=== PATIENT | male | born 1935 | race Caucasian/White ===

== ENCOUNTER → 2020-06-28 | Outpatient (CLI) | payer MEDICARE, OTHER ==
[~2020-06-28] MED LIST: AMLO2.5T5 PO; APIX5TAB PO; CARV12.52 PO; DOXY100T PO; LOSA50TA14 PO; LOVA40TA2 PO
[2020-06-28 13:56] LABS: ALANINE AMINOTRANSFERASE 58 U/L (12-78); ALBUMIN 2.8 g/dL (3.4-5.0); ANION GAP 6 mmol/L (5-15); CALCIUM 8.9 mg/dL (8.5-10.1); CHLORIDE 106 mmol/L (98-107); CREATININE 0.97 mg/dL (0.7-1.3)
[2020-06-28 13:58] LABS: ALKALINE PHOSPHATASE 354 U/L (45-117); BILIRUBIN,TOTAL 1.3 mg/dL (0.2-1.0); TOTAL PROTEIN 6.4 g/dL (6.4-8.2)
[2020-06-28 14:02] LABS: BASOPHILS % (AUTO) 1 % (0-1); EOSINOPHILS % (AUTO) 1 % (1-7); LYMPHOCYTES % (AUTO) 9 % (22-44); MEAN CORPUSCULAR HEMOGLOBIN 33.3 pg (27.5-34.5); MEAN CORPUSCULAR HGB CONC 32.7 g/dL (33.2-36.2); MEAN PLATELET VOLUME 8.4 fL (7.4-10.4); MONOCYTES % (AUTO) 8 % (2-9); NEUTROPHILS % (AUTO) 81 % (42-75); PLATELET COUNT 265 x10^3/uL (130-400); RED BLOOD COUNT 4.88 x10^6/uL (4.38-5.82); RED CELL DISTRIBUTION WIDTH 13.8 % (9.4-14.8)
[2020-06-28 14:10] LABS: INTERNATIONAL NORMALIZED RATIO 1.17 (0.93-1.1); PROTHROMBIN TIME 12.4 Seconds (9.6-11.5)
[2020-06-28 14:42] LABS: MD SCAN
== END | disposition home or self-care (01) ==
LOC: STAR 12:23
PROVIDERS: ATTEND Orthopaedic Surgery
DX: Z01.812 Encounter for preprocedural laboratory examination (principal); Z20.828 Contact with and (suspected) exposure to other viral communicable diseases; I48.91 Unspecified atrial fibrillation; I25.2 Old myocardial infarction; Z96.651 Presence of right artificial knee joint
CPT/HCPCS: 36415; 80053; 83036; 85025; 85610; 85730; 87081; 87635; 87806; 93005; G0475

== ENCOUNTER 2020-07-02 12:56 | Inpatient (IN) | payer MEDICARE, OTHER ==
[~2020-07-02] VITALS: Ht 188 cm; Wt 115.0 kg
[2020-07-02] MEDS ORDERED: GABAPENTIN 300 MG CAPSULE PO ONE (13:30)
[2020-07-02] MEDS ORDERED: VANCOMYCIN PER PHARMACY MC PRN (13:30)
[2020-07-02] MEDS ORDERED: VANCOMYCIN 2,500 MG in SODIUM CHLORIDE 0.9% 500 ML IV ONE (13:30)
[2020-07-02] MEDS ORDERED: ACETAMINOPHEN 500 MG TABLET PO ONE (13:30)
[2020-07-02 13:56] VITALS: BP 156/91
[2020-07-02] MEDS ORDERED: CHLORHEXIDINE 15 ML UDC MM ONE (14:00)
[2020-07-02] MEDS ORDERED: LACTATED RINGERS 1,000 ML IV SCH (14:00)
[2020-07-02] MEDS ORDERED: CHLORHEXIDINE 15 ML UDC ONE (14:01)
[2020-07-02] MEDS ORDERED: MIDAZOLAM 1 MG/ML, 2ML ONE (15:58)
[2020-07-02] MEDS ORDERED: FENTANYL PF 250 MCG/5ML ONE (15:58)
[2020-07-02] MEDS ORDERED: ROCURONIUM 10 MG/ML,10ML ONE (16:03)
[2020-07-02] MEDS ORDERED: NEOSTIGMINE 1 MG/ML, 10ML ONE (16:03)
[2020-07-02] MEDS ORDERED: PROPOFOL 10 MG/ML, 20ML ONE (16:03)
[2020-07-02] MEDS ORDERED: GLYCOPYRROLATE 0.2MG/1ML, 5ML ONE (16:03)
[2020-07-02] MEDS ORDERED: CEFAZOLIN 1,000 MG ONE (16:03)
[2020-07-02] MEDS ORDERED: DEXAMETHASONE 4 MG/ML, 1ML ONE (16:03)
[2020-07-02] MEDS ORDERED: VANCOMYCIN 1,000 MG ONE (17:39)
[2020-07-02] MEDS ORDERED: OXYcodone 5 MG/5 ML ORAL.SOL UDC PO PRN (18:00)
[2020-07-02] MEDS ORDERED: LABETALOL 5MG/ML, 20ML IV PRN (18:00)
[2020-07-02] MEDS ORDERED: ONDANSETRON 2MG/ML, 2ML IVPush PRN ×2 (18:00→18:30)
[2020-07-02] MEDS ORDERED: hydrALAzine 20 MG/ML, 1ML IV PRN (18:00)
[2020-07-02] MEDS ORDERED: FENTANYL PF 100 MCG/2ML IV PRN (18:00)
[2020-07-02] MEDS ORDERED: DIPHENHYDRAMINE 50 MG/ML, 1ML IVPush PRN (18:30)
[2020-07-02] MEDS ORDERED: ALUMINUM/MAG/SIMETHICONE 30 ML UDC PO PRN (18:30)
[2020-07-02] MEDS ORDERED: PSYLLIUM PACKET PO PRN (18:30)
[2020-07-02] MEDS ORDERED: DIPHENHYDRAMINE 25 MG CAPSULE PO PRN (18:30)
[2020-07-02] MEDS ORDERED: MAGNESIUM HYDROXIDE 8%, 30ML UDC PO PRN (18:30)
[2020-07-02] MEDS ORDERED: METOCLOPRAMIDE 10MG TABLET PO PRN (18:30)
[2020-07-02] MEDS ORDERED: ONDANSETRON 4 MG TABLET PO PRN (18:30)
[2020-07-02] MEDS ORDERED: POLYETHYLENE GLYCOL 17 GM PACKET PO PRN (18:30)
[2020-07-02] MEDS ORDERED: HYDROmorphone 1 MG/ML, 1ML INJ IVPush PRN (18:30)
[2020-07-02] MEDS ORDERED: ACETAMINOPHEN 650 MG/20.3 ML UDC PO PRN (18:30)
[2020-07-02] MEDS ORDERED: ACETAMINOPHEN 325 MG TABLET PO PRN (18:30)
[2020-07-02] MEDS ORDERED: SENNA/DOCUSATE TABLET PO PRN (18:30)
[2020-07-02] MEDS ORDERED: DIAZEPAM 5 MG TABLET PO PRN (18:30)
[2020-07-02] MEDS ORDERED: TRANEXAMIC ACID 1,000 MG in SODIUM CHLORIDE 0.9% 100 ML IVPB ONE (18:30)
[2020-07-02] MEDS ORDERED: PROMETHAZINE 25 MG/ML, 1ML IM PRN (18:30)
[2020-07-02] MEDS ORDERED: FENTANYL PF 100 MCG/2ML ONE (18:36)
[2020-07-02] MEDS ORDERED: OXYcodone 5 MG/5 ML ORAL.SOL UDC ONE ×2 (18:36→18:54)
[2020-07-02] MEDS ORDERED: HYDROmorphone 2 MG/ML, 1ML ONE (18:54)
[2020-07-02] MEDS: HYDROmorphone 1 MG/ML, 1ML INJ IVPush PRN ×2 (18:56→19:10)
[2020-07-02] MEDS ORDERED: APIXABAN 5 MG TABLET PO SCH (21:00)
[2020-07-02] MEDS: PREGABALIN 75 MG CAPSULE PO SCH (21:15)
[2020-07-02] MEDS: LOVASTATIN 40 MG TABLET PO SCH (21:15)
[2020-07-02] MEDS: KETOROLAC 30 MG/1 ML IV SCH (21:15)
[2020-07-02] MEDS: AMLODIPINE 2.5 MG TABLET PO SCH (21:16)
[2020-07-02] MEDS: LOSARTAN 50MG TABLET PO SCH (21:16)
[2020-07-02] MEDS: DOCUSATE 100 MG CAPSULE PO SCH (21:23)
[2020-07-03 00:10] VITALS: BP 106/68
[2020-07-03] MEDS: OXYcodone IR 5MG TABLET PO PRN ×3 (00:20→15:59)
[2020-07-03] MEDS: CEFAZOLIN PMX 1GM/50ML 50 ML IVPB SCH ×2 (00:21→09:23)
[2020-07-03] MEDS ORDERED: VANCOMYCIN PMX 1GM/200ML 200 ML IVPB SCH (02:00)
[2020-07-03 03:27] VITALS: BP 116/67
[2020-07-03] MEDS: POTASSIUM CHLORIDE 20 MEQ in D5%-0.45% NACL 1,000 ML IV SCH ×3 (04:15→14:34)
[2020-07-03] MEDS ORDERED: DEXAMETHASONE 4 MG/ML, 1ML IVPush SCH (06:00)
[2020-07-03] MEDS ORDERED: APIXABAN 5 MG TABLET PO SCH (06:00)
[2020-07-03] MEDS: CARVEDILOL 12.5 MG TABLET PO SCH ×2 (06:04→18:07)
[2020-07-03] MEDS: KETOROLAC 30 MG/1 ML IV SCH ×2 (06:04→13:04)
[2020-07-03 08:39] VITALS: BP 101/64
[2020-07-03] MEDS: AMLODIPINE 2.5 MG TABLET PO SCH ×2 (09:24→20:15)
[2020-07-03] MEDS: PREGABALIN 75 MG CAPSULE PO SCH ×2 (09:25→20:15)
[2020-07-03] MEDS: LOSARTAN 50MG TABLET PO SCH ×2 (09:25→20:15)
[2020-07-03] MEDS: DOCUSATE 100 MG CAPSULE PO SCH ×2 (09:25→21:00)
[2020-07-03] MEDS: TAMSULOSIN 0.4 MG CAP.ER.24H PO SCH (09:25)
[2020-07-03 13:10] VITALS: BP 114/76
[2020-07-03 19:01] VITALS: BP 98/63
[2020-07-03] MEDS: LOVASTATIN 40 MG TABLET PO SCH (20:15)
[2020-07-04] MEDS: POTASSIUM CHLORIDE 20 MEQ in D5%-0.45% NACL 1,000 ML IV SCH ×3 (00:48→20:59)
[2020-07-04 00:56] VITALS: BP 113/71
[2020-07-04] MEDS: ENOXAPARIN 40 MG/0.4 ML SQ SCH (06:30)
[2020-07-04 06:44] VITALS: BP 99/61
[2020-07-04] MEDS: CARVEDILOL 12.5 MG TABLET PO SCH ×2 (06:54→17:54)
[2020-07-04] MEDS: OXYcodone IR 5MG TABLET PO PRN ×3 (06:54→22:00)
[2020-07-04] MEDS: PREGABALIN 75 MG CAPSULE PO SCH ×2 (08:47→20:52)
[2020-07-04] MEDS: TAMSULOSIN 0.4 MG CAP.ER.24H PO SCH (08:47)
[2020-07-04] MEDS: DOCUSATE 100 MG CAPSULE PO SCH ×2 (08:56→20:59)
[2020-07-04] MEDS: AMLODIPINE 2.5 MG TABLET PO SCH ×2 (08:56→20:52)
[2020-07-04] MEDS: LOSARTAN 50MG TABLET PO SCH ×2 (08:56→20:52)
[2020-07-04 14:03] VITALS: BP 98/63
[2020-07-04 19:17] VITALS: BP 107/70
[2020-07-04] MEDS: LOVASTATIN 40 MG TABLET PO SCH (20:52)
[2020-07-05 01:45] VITALS: BP 95/63
[2020-07-05] MEDS: CARVEDILOL 12.5 MG TABLET PO SCH ×2 (06:00→17:56)
[2020-07-05 06:04] LABS: BASOPHILS % (AUTO) 0 % (0-1); EOSINOPHILS % (AUTO) 1 % (1-7); LYMPHOCYTES % (AUTO) 7 % (22-44); MEAN CORPUSCULAR HEMOGLOBIN 33.4 pg (27.5-34.5); MEAN CORPUSCULAR HGB CONC 32.8 g/dL (33.2-36.2); MEAN PLATELET VOLUME 8.5 fL (7.4-10.4); MONOCYTES % (AUTO) 11 % (2-9); NEUTROPHILS % (AUTO) 81 % (42-75); PLATELET COUNT 148 x10^3/uL (130-400); RED CELL DISTRIBUTION WIDTH 13.5 % (9.4-14.8)
[2020-07-05 06:12] LABS: ALANINE AMINOTRANSFERASE 24 U/L (12-78); ALBUMIN 2.3 g/dL (3.4-5.0); ANION GAP 4 mmol/L (5-15); CALCIUM 8.4 mg/dL (8.5-10.1); CHLORIDE 107 mmol/L (98-107); CREATININE 0.93 mg/dL (0.7-1.3)
[2020-07-05] MEDS: ENOXAPARIN 40 MG/0.4 ML SQ SCH (06:12)
[2020-07-05 06:14] LABS: ALKALINE PHOSPHATASE 215 U/L (45-117); BILIRUBIN,TOTAL 0.4 mg/dL (0.2-1.0); TOTAL PROTEIN 5.1 g/dL (6.4-8.2)
[2020-07-05 06:22] LABS: MD NO
[2020-07-05] MEDS: POTASSIUM CHLORIDE 20 MEQ in D5%-0.45% NACL 1,000 ML IV SCH ×2 (06:37→11:58)
[2020-07-05 08:25] VITALS: BP 104/69
[2020-07-05] MEDS: DOCUSATE 100 MG CAPSULE PO SCH ×2 (09:00→21:00)
[2020-07-05] MEDS: OXYcodone IR 5MG TABLET PO PRN ×3 (09:42→21:39)
[2020-07-05] MEDS: PREGABALIN 75 MG CAPSULE PO SCH ×2 (09:43→21:39)
[2020-07-05] MEDS: AMLODIPINE 2.5 MG TABLET PO SCH ×2 (09:43→21:39)
[2020-07-05] MEDS: LOSARTAN 50MG TABLET PO SCH ×2 (09:43→21:39)
[2020-07-05] MEDS: TAMSULOSIN 0.4 MG CAP.ER.24H PO SCH (09:43)
[2020-07-05 12:39] VITALS: BP 108/67
[2020-07-05 19:53] VITALS: BP 109/72
[2020-07-05] MEDS: LOVASTATIN 40 MG TABLET PO SCH (21:39)
[2020-07-06 01:08] VITALS: BP 140/83
[2020-07-06] MEDS: POTASSIUM CHLORIDE 20 MEQ in D5%-0.45% NACL 1,000 ML IV SCH (03:18)
[2020-07-06] MEDS: CARVEDILOL 12.5 MG TABLET PO SCH ×2 (04:51→18:04)
[2020-07-06] MEDS ORDERED: EPINEPHRINE 1 MG/ML, 1ML ONE (06:06)
[2020-07-06] MEDS ORDERED: ROPIvacaine/PF 0.2%, 20 ML ONE ×2 (06:06→07:36)
[2020-07-06] MEDS ORDERED: SODIUM CHLORIDE 0.9% 50 ML ONE (06:06)
[2020-07-06] MEDS ORDERED: VANCOMYCIN 1,000 MG ONE ×2 (06:06→07:36)
[2020-07-06] MEDS ORDERED: KETOROLAC 60 MG/2 ML ONE (06:06)
[2020-07-06] MEDS ORDERED: TRANEXAMIC ACID 100 MG/ML, 10ML ONE ×2 (06:06→07:36)
[2020-07-06] MEDS ORDERED: CHLORHEXIDINE 15 ML UDC MM ONE (06:30)
[2020-07-06] MEDS ORDERED: CHLORHEXIDINE 15 ML UDC ONE (06:31)
[2020-07-06] MEDS ORDERED: FENTANYL PF 100 MCG/2ML ONE ×2 (06:40→09:16)
[2020-07-06] MEDS ORDERED: EPHEDRINE 50 MG/ML, 1ML ONE (06:58)
[2020-07-06] MEDS ORDERED: VASOPRESSIN 20 UNIT/ML, 1ML ONE (06:58)
[2020-07-06] MEDS ORDERED: CEFAZOLIN 1,000 MG ONE (07:22)
[2020-07-06] MEDS ORDERED: DEXAMETHASONE 4 MG/ML, 1ML ONE (07:22)
[2020-07-06] MEDS ORDERED: ONDANSETRON 2MG/ML, 2ML ONE (07:22)
[2020-07-06] MEDS ORDERED: ROCURONIUM 10MG/ML,5ML ONE (07:22)
[2020-07-06] MEDS ORDERED: GLYCOPYRROLATE 0.2MG/1ML, 5ML ONE (07:22)
[2020-07-06] MEDS ORDERED: PROPOFOL 10 MG/ML, 20ML ONE (07:22)
[2020-07-06] MEDS ORDERED: SUCCINYLCHOLINE 20 MG/ML, 10ML ONE (07:22)
[2020-07-06] MEDS ORDERED: NEOSTIGMINE 1 MG/ML, 10ML ONE (07:22)
[2020-07-06] MEDS ORDERED: PROMETHAZINE 25 MG/ML, 1ML IVPush PRN (08:00)
[2020-07-06] MEDS ORDERED: MEPERIDINE/PF 25MG/0.5ML IVPush PRN (08:00)
[2020-07-06] MEDS ORDERED: HYDROcodone/APAP 7.5-325MG/15ML UDC PO PRN (08:00)
[2020-07-06] MEDS ORDERED: HYDROmorphone 1 MG/ML, 1ML INJ IVPush PRN (08:00)
[2020-07-06] MEDS ORDERED: OXYcodone 5 MG/5 ML ORAL.SOL UDC PO PRN (08:00)
[2020-07-06] MEDS: AMLODIPINE 2.5 MG TABLET PO SCH ×2 (09:00→22:06)
[2020-07-06] MEDS ORDERED: TRANEXAMIC ACID 1,000 MG in SODIUM CHLORIDE 0.9% 100 ML IVPB ONE (09:00)
[2020-07-06] MEDS: TAMSULOSIN 0.4 MG CAP.ER.24H PO SCH (09:00)
[2020-07-06] MEDS: DOCUSATE 100 MG CAPSULE PO SCH ×3 (09:00→22:10)
[2020-07-06] MEDS: LOSARTAN 50MG TABLET PO SCH ×2 (09:00→22:06)
[2020-07-06] MEDS: PREGABALIN 75 MG CAPSULE PO SCH ×2 (09:00→22:06)
[2020-07-06] MEDS: FENTANYL PF 100 MCG/2ML IV PRN ×3 (09:15→09:45)
[2020-07-06] MEDS ORDERED: OXYcodone 5 MG/5 ML ORAL.SOL UDC ONE (09:16)
[2020-07-06 11:05] LABS: BASOPHILS % (AUTO) 0 % (0-1); EOSINOPHILS % (AUTO) 1 % (1-7); LYMPHOCYTES % (AUTO) 6 % (22-44); MEAN CORPUSCULAR HEMOGLOBIN 33.2 pg (27.5-34.5); MEAN CORPUSCULAR HGB CONC 32.9 g/dL (33.2-36.2); MONOCYTES % (AUTO) 6 % (2-9); NEUTROPHILS % (AUTO) 86 % (42-75); PLATELET COUNT 116 x10^3/uL (130-400); RED BLOOD COUNT 3.43 x10^6/uL (4.38-5.82); RED CELL DISTRIBUTION WIDTH 13.6 % (9.4-14.8)
[2020-07-06] MEDS ORDERED: ACETAMINOPHEN 650 MG/20.3 ML UDC PO PRN (11:30)
[2020-07-06 11:33] LABS: MD SCAN
[2020-07-06 12:04] VITALS: BP 105/57
[2020-07-06] MEDS ORDERED: VANCOMYCIN PER PHARMACY MC PRN (13:00)
[2020-07-06] MEDS ORDERED: PHARMACOKINETIC MONITORING MC PRN (13:30)
[2020-07-06] MEDS ORDERED: PHARMACOKINETIC CONSULTATION MC ONE (13:30)
[2020-07-06] MEDS: LACTATED RINGERS 1,000 ML IV SCH (14:27)
[2020-07-06] MEDS: CEFAZOLIN PMX 1GM/50ML 50 ML IV SCH (15:47)
[2020-07-06] MEDS ORDERED: VANCOMYCIN 1,400 MG in SODIUM CHLORIDE 0.9% 250 ML IV ONE (16:30)
[2020-07-06] MEDS: LACTOBACILLUS CHEW TABLET PO SCH ×2 (18:04→22:06)
[2020-07-06] MEDS: OXYcodone IR 5MG TABLET PO PRN ×2 (18:23→22:18)
[2020-07-06 20:11] VITALS: BP 98/62
[2020-07-06] MEDS: LOVASTATIN 40 MG TABLET PO SCH (22:06)
[2020-07-06] MEDS: CALCIUM/VITAMIN D3 250-125 TABLET PO SCH (22:06)
[2020-07-06 23:49] VITALS: BP 107/63
[2020-07-07] MEDS: CEFAZOLIN PMX 1GM/50ML 50 ML IV SCH ×3 (00:11→16:38)
[2020-07-07 03:20] VITALS: BP 107/67
[2020-07-07] MEDS: OXYcodone IR 5MG TABLET PO PRN ×2 (04:36→21:16)
[2020-07-07 05:48] LABS: BASOPHILS % (AUTO) 0 % (0-1); EOSINOPHILS % (AUTO) 0 % (1-7); LYMPHOCYTES % (AUTO) 5 % (22-44); MEAN CORPUSCULAR HEMOGLOBIN 33.9 pg (27.5-34.5); MEAN CORPUSCULAR HGB CONC 33.6 g/dL (33.2-36.2); MEAN PLATELET VOLUME 9.6 fL (7.4-10.4); MONOCYTES % (AUTO) 10 % (2-9); NEUTROPHILS % (AUTO) 85 % (42-75); PLATELET COUNT 127 x10^3/uL (130-400); RED BLOOD COUNT 3.13 x10^6/uL (4.38-5.82); RED CELL DISTRIBUTION WIDTH 13.8 % (9.4-14.8)
[2020-07-07 06:04] LABS: % IRON SATURATION 20 % (20-55); ANION GAP 2 mmol/L (5-15); CALCIUM 8.2 mg/dL (8.5-10.1); CHLORIDE 107 mmol/L (98-107); CREATININE 0.91 mg/dL (0.7-1.3); IRON LEVEL 34 mcg/dL (65-175); TOTAL IRON BINDING CAPACITY 174 mcg/dL (250-450)
[2020-07-07 06:06] LABS: VANCOMYCIN,RANDOM 15.6 mcg/mL
[2020-07-07 06:32] LABS: MD NO
[2020-07-07] MEDS: ALENDRONATE 10 MG TABLET PO SCH (06:51)
[2020-07-07] MEDS: CARVEDILOL 12.5 MG TABLET PO SCH ×2 (06:51→10:18)
[2020-07-07] MEDS: LACTOBACILLUS CHEW TABLET PO SCH ×3 (08:46→21:14)
[2020-07-07] MEDS: TAMSULOSIN 0.4 MG CAP.ER.24H PO SCH (08:46)
[2020-07-07] MEDS: PREGABALIN 75 MG CAPSULE PO SCH ×2 (08:46→21:15)
[2020-07-07] MEDS: DOCUSATE 100 MG CAPSULE PO SCH ×2 (08:47→21:14)
[2020-07-07] MEDS: AMLODIPINE 2.5 MG TABLET PO SCH ×2 (08:47→21:15)
[2020-07-07] MEDS: ENOXAPARIN 40 MG/0.4 ML SQ SCH (08:47)
[2020-07-07] MEDS: CALCIUM/VITAMIN D3 250-125 TABLET PO SCH ×2 (08:47→21:14)
[2020-07-07] MEDS: LACTATED RINGERS 1,000 ML IV SCH (08:54)
[2020-07-07 09:51] VITALS: BP 75/53
[2020-07-07] MEDS ORDERED: SODIUM CHLORIDE 0.9%, 500ML IVBOLUS ONE (10:30)
[2020-07-07] MEDS: VANCOMYCIN 1,800 MG in SODIUM CHLORIDE 0.9% 250 ML IV SCH (11:36)
[2020-07-07 12:39] VITALS: BP 90/49
[2020-07-07 17:39] LABS: ANION GAP 4 mmol/L (5-15); CALCIUM 8.1 mg/dL (8.5-10.1); CHLORIDE 106 mmol/L (98-107); CREATININE 0.99 mg/dL (0.7-1.3)
[2020-07-07] MEDS ORDERED: CARVEDILOL 6.25 MG TABLET PO SCH (18:00)
[2020-07-07] MEDS: LOVASTATIN 40 MG TABLET PO SCH (21:14)
[2020-07-07 21:15] VITALS: BP 109/71
[2020-07-08] MEDS: LACTATED RINGERS 1,000 ML IV SCH ×2 (01:02→17:57)
[2020-07-08] MEDS: CEFAZOLIN PMX 1GM/50ML 50 ML IV SCH ×3 (01:02→17:56)
[2020-07-08 01:27] VITALS: BP 97/70
[2020-07-08 05:21] LABS: BASOPHILS % (AUTO) 0 % (0-1); EOSINOPHILS % (AUTO) 2 % (1-7); LYMPHOCYTES % (AUTO) 8 % (22-44); MEAN CORPUSCULAR HEMOGLOBIN 33.6 pg (27.5-34.5); MEAN CORPUSCULAR HGB CONC 33.2 g/dL (33.2-36.2); MEAN PLATELET VOLUME 9.4 fL (7.4-10.4); MONOCYTES % (AUTO) 13 % (2-9); NEUTROPHILS % (AUTO) 77 % (42-75); PLATELET COUNT 129 x10^3/uL (130-400); RED BLOOD COUNT 3.02 x10^6/uL (4.38-5.82); RED CELL DISTRIBUTION WIDTH 13.7 % (9.4-14.8)
[2020-07-08 05:23] LABS: ANION GAP 4 mmol/L (5-15); CALCIUM 8.3 mg/dL (8.5-10.1); CHLORIDE 110 mmol/L (98-107); CREATININE 0.86 mg/dL (0.7-1.3)
[2020-07-08 05:30] LABS: MD NO
[2020-07-08 06:50] VITALS: BP 115/72
[2020-07-08] MEDS: ALENDRONATE 10 MG TABLET PO SCH (06:54)
[2020-07-08] MEDS: CARVEDILOL 6.25 MG TABLET PO SCH ×2 (06:55→18:00)
[2020-07-08] MEDS: OXYcodone IR 5MG TABLET PO PRN ×4 (06:56→20:12)
[2020-07-08 08:24] VITALS: BP 104/56
[2020-07-08] MEDS: LACTOBACILLUS CHEW TABLET PO SCH ×3 (08:54→20:12)
[2020-07-08] MEDS: AMLODIPINE 2.5 MG TABLET PO SCH ×2 (08:54→20:13)
[2020-07-08] MEDS: CALCIUM/VITAMIN D3 250-125 TABLET PO SCH ×2 (08:54→20:13)
[2020-07-08] MEDS: TAMSULOSIN 0.4 MG CAP.ER.24H PO SCH (08:54)
[2020-07-08] MEDS: PREGABALIN 75 MG CAPSULE PO SCH ×2 (08:55→20:13)
[2020-07-08] MEDS: ENOXAPARIN 40 MG/0.4 ML SQ SCH (08:56)
[2020-07-08] MEDS: DOCUSATE 100 MG CAPSULE PO SCH ×2 (09:00→20:13)
[2020-07-08] MEDS: VANCOMYCIN 1,800 MG in SODIUM CHLORIDE 0.9% 250 ML IV SCH (11:33)
[2020-07-08 14:31] VITALS: BP 96/59
[2020-07-08 18:00] VITALS: BP 99/59
[2020-07-08] MEDS: LOVASTATIN 40 MG TABLET PO SCH (20:12)
[2020-07-08 20:26] VITALS: BP 105/64
[2020-07-09] MEDS: CEFAZOLIN PMX 1GM/50ML 50 ML IV SCH ×3 (01:11→17:27)
[2020-07-09] MEDS: OXYcodone IR 5MG TABLET PO PRN ×5 (01:11→21:13)
[2020-07-09 01:24] VITALS: BP 115/71
[2020-07-09 06:46] VITALS: BP 125/79
[2020-07-09] MEDS: ALENDRONATE 10 MG TABLET PO SCH (06:47)
[2020-07-09] MEDS: CARVEDILOL 6.25 MG TABLET PO SCH ×2 (06:47→17:26)
[2020-07-09 07:38] VITALS: BP 119/77
[2020-07-09] MEDS: PREGABALIN 75 MG CAPSULE PO SCH ×2 (08:53→21:09)
[2020-07-09] MEDS: LACTOBACILLUS CHEW TABLET PO SCH ×3 (08:53→21:09)
[2020-07-09] MEDS: ENOXAPARIN 40 MG/0.4 ML SQ SCH (08:54)
[2020-07-09] MEDS: CALCIUM/VITAMIN D3 250-125 TABLET PO SCH ×2 (08:54→21:09)
[2020-07-09] MEDS: TAMSULOSIN 0.4 MG CAP.ER.24H PO SCH (08:54)
[2020-07-09] MEDS: LACTATED RINGERS 1,000 ML IV SCH (10:30)
[2020-07-09] MEDS: VANCOMYCIN 1,800 MG in SODIUM CHLORIDE 0.9% 250 ML IV SCH (12:31)
[2020-07-09 14:17] VITALS: BP 122/69
[2020-07-09 20:29] VITALS: BP 99/62
[2020-07-09] MEDS ORDERED: AMLODIPINE 2.5 MG TABLET PO SCH (21:00)
[2020-07-09] MEDS: LOVASTATIN 40 MG TABLET PO SCH (21:09)
[2020-07-10] MEDS: CEFAZOLIN PMX 1GM/50ML 50 ML IV SCH ×2 (00:42→09:28)
[2020-07-10 01:02] VITALS: BP 106/66
[2020-07-10] MEDS: OXYcodone IR 5MG TABLET PO PRN ×3 (01:28→11:23)
[2020-07-10] MEDS: LACTATED RINGERS 1,000 ML IV SCH (03:10)
[2020-07-10 06:06] LABS: BASOPHILS % (AUTO) 1 % (0-1); EOSINOPHILS % (AUTO) 6 % (1-7); LYMPHOCYTES % (AUTO) 11 % (22-44); MEAN CORPUSCULAR HEMOGLOBIN 33.1 pg (27.5-34.5); MEAN CORPUSCULAR HGB CONC 32.7 g/dL (33.2-36.2); MEAN PLATELET VOLUME 8.9 fL (7.4-10.4); MONOCYTES % (AUTO) 12 % (2-9); NEUTROPHILS % (AUTO) 70 % (42-75); PLATELET COUNT 152 x10^3/uL (130-400); RED BLOOD COUNT 2.96 x10^6/uL (4.38-5.82); RED CELL DISTRIBUTION WIDTH 13.8 % (9.4-14.8)
[2020-07-10 06:13] LABS: MD NO
[2020-07-10 06:14] LABS: ANION GAP 2 mmol/L (5-15); CALCIUM 8.1 mg/dL (8.5-10.1); CHLORIDE 107 mmol/L (98-107); CREATININE 0.86 mg/dL (0.7-1.3)
[2020-07-10 06:40] VITALS: BP 130/80
[2020-07-10] MEDS: ALENDRONATE 10 MG TABLET PO SCH (06:42)
[2020-07-10] MEDS: CARVEDILOL 6.25 MG TABLET PO SCH (06:42)
[2020-07-10 07:57] VITALS: BP 127/84
[2020-07-10] MEDS: CALCIUM/VITAMIN D3 250-125 TABLET PO SCH (09:00)
[2020-07-10] MEDS: ENOXAPARIN 40 MG/0.4 ML SQ SCH (09:00)
[2020-07-10] MEDS: TAMSULOSIN 0.4 MG CAP.ER.24H PO SCH (09:29)
[2020-07-10] MEDS: PREGABALIN 75 MG CAPSULE PO SCH (09:29)
[2020-07-10] MEDS: LACTOBACILLUS CHEW TABLET PO SCH (09:29)
[2020-07-10] MEDS: VANCOMYCIN 1,800 MG in SODIUM CHLORIDE 0.9% 250 ML IV SCH (11:19)
[2020-07-10] MEDS ORDERED: OXYC10TA6 PO (13:50)
[2020-07-10] MEDS ORDERED: TRAM50TA2 PO (13:51)
[2020-07-10] MEDS ORDERED: ONDA4TAB13 SL (13:52)
[2020-07-10] MEDS ORDERED: MELO7.5T5 PO (13:52)
== END 2020-07-10 15:12 | DRG 461 ==
LOC: ORIP 12:56 → 4NE 20:00
PROVIDERS: ADMIT Orthopaedic Surgery; ATTEND Orthopaedic Surgery
PROC: 0SRT0J9 Replacement of Right Knee Joint, Femoral Surface with Synthetic Substitute, Cemented, Open Approach (ICD-10-PCS; 2020-07-02)
PROC: 0SPT0JZ Removal of Synthetic Substitute from Right Knee Joint, Femoral Surface, Open Approach (ICD-10-PCS; principal; 2020-07-02 16:00)
PROC: 0SR90JZ Replacement of Right Hip Joint with Synthetic Substitute, Open Approach (ICD-10-PCS; 2020-07-06)
DX: T84.032A Mechanical loosening of internal right knee prosthetic joint, initial encounter (principal); S72.001A Fracture of unspecified part of neck of right femur, initial encounter for closed fracture; D62 Acute posthemorrhagic anemia; E87.1 Hypo-osmolality and hyponatremia; E78.5 Hyperlipidemia, unspecified; I10 Essential (primary) hypertension; I25.2 Old myocardial infarction; Z20.828 Contact with and (suspected) exposure to other viral communicable diseases; G47.00 Insomnia, unspecified; Y83.8 Other surgical procedures as the cause of abnormal reaction of the patient, or of later complication, without mention of misadventure at the time of the procedure; W18.39XA Other fall on same level, initial encounter; D69.6 Thrombocytopenia, unspecified; E87.5 Hyperkalemia; I95.9 Hypotension, unspecified; M16.11 Unilateral primary osteoarthritis, right hip; Z85.038 Personal history of other malignant neoplasm of large intestine; Z83.3 Family history of diabetes mellitus; Z82.0 Family history of epilepsy and other diseases of the nervous system; Z81.1 Family history of alcohol abuse and dependence; Y93.89 Activity, other specified; Y92.89 Other specified places as the place of occurrence of the external cause; Y99.8 Other external cause status; Z79.899 Other long term (current) drug therapy
CPT/HCPCS: 36415; 72170; 80048; 80053; 80202; 83540; 83550; 85014; 85018; 85025; 87635; C1713; G0378; J0171; J0690; J1100; J1170; J1650; J1885; J2250; J2405; J2704; J2710; J2795; J3010; J3370; C1776; J0330; J7040; J7050; J7120